=== PATIENT | female | born 1975 | race Caucasian/White ===

== ENCOUNTER → 2016-05-24 | Outpatient (CLI) | payer OTHER | LOC: GMAL 17:03 | PROVIDERS: ATTEND Family Medicine | DX: R25.8 Other abnormal involuntary movements (principal) ==

== ENCOUNTER → 2016-09-10 | Outpatient (CLI) | payer OTHER ==
--- NOTE | 2016-09-11 11:55 | MAM ---
History: Well woman exam. Date of exam: 09/10/2016 Services provided: Bilateral full field digital screening mammography. CAD, the images were reviewed with R2 computer aided detection. FINDINGS: Glandular tissue is scattered nodular contour with slightly increased mammographic density. No prior exam is currently available for comparison. No dominant mass, architectural distortion or clustered microcalcification. IMPRESSION: Benign exam Recommendation: Routine annual mammography BIRAD CATEGORY: 2 BENIGN Electronically signed by: Romy Reynoso MD 09/11/2016 11:54 AM CDT
== END | disposition home or self-care (01) ==
LOC: MAMMO 16:53
PROVIDERS: ATTEND Family Medicine
DX: Z12.31 Encounter for screening mammogram for malignant neoplasm of breast (principal)

== ENCOUNTER → 2017-03-21 | Outpatient (CLI) | payer OTHER | END | disposition home or self-care (01) | LOC: LAB.NP 14:55 | PROVIDERS: ATTEND Family Medicine | DX: D51.3 Other dietary vitamin B12 deficiency anemia (principal); I10 Essential (primary) hypertension; E78.4 Other hyperlipidemia; E55.9 Vitamin D deficiency, unspecified ==

== ENCOUNTER → 2017-03-27 | Outpatient (CLI) | payer OTHER ==
--- NOTE | 2017-03-28 11:37 | US ---
EXAM DESCRIPTION: Pelvis Transvaginal CLINICAL HISTORY: EXCESSIVE AND FREQUENT MENTSTRUATION WITH IRREGULAR CYCLE COMPARISON: None. TECHNIQUE: Transvaginal sonographic images of the pelvis were acquired and submitted for review. FINDINGS: Uterus: * Orientation- anteverted * Size- 8 x 4.1 x 4.6cm * Mass- a 3.5 x 2.9 x 2 cm and 1.6 x 1.6 x 1.5 cm intramural leiomyomas are observed. * Cervix- a 6.9 cm nabothian cyst is observed * Endometrium- normal and measures 4.6 cm in thickness Ovaries: * Size- right measures 2.6 x 1.4 x 3 cm; left measures 3.8 x 2.9 x 2.1 cm * Mass- None. * Vascular flow- Present. * Cyst- None Adnexa: Mass- None. Free fluid - None. IMPRESSION: Two leiomyomas are observed. Electronically signed by: Jacky Painting MD 03/28/2017 11:35 AM [employer]
== END | disposition home or self-care (01) ==
LOC: US 13:30
PROVIDERS: ATTEND Family Medicine
DX: D25.1 Intramural leiomyoma of uterus (principal); N92.1 Excessive and frequent menstruation with irregular cycle

== ENCOUNTER → 2017-10-01 | Outpatient (CLI) | payer OTHER ==
--- NOTE | 2017-10-02 15:48 | MAM ---
EXAM DESCRIPTION: 3D Screening BILATERAL : Digital Mammography. CLINICAL HISTORY: 42 years Female ANNUAL SCREENING . No complaints. Remote family history of breast cancer. Childbirth. Postmenopausal. No HRT. COMPARISON: 2-D digital screening bilateral study 09/10/2016 Report from prior examination also reviewed. TECHNIQUE: Bilateral CC and MLO projection full-field images, 3-D tomosynthesis digital mammographic technique. CAD not utilized. FINDINGS: The breast parenchymal density pattern is: Heterogeneously dense breast tissue, which may obscure small masses. No skin thickening or nipple retraction bilateral axillary lymph nodes. Bilateral solitary microcalcifications. No focal, stellate mass or density, focal asymmetry , and no suspicious microcalcifications bilaterally. Stable mammograms compared to prior study, taking into account differences in mammographic technique IMPRESSION: BI-RADS CATEGORY: 2 - BENIGN FINDINGS. FOLLOW UP: Routine digital bilateral screening, one year interval from September 2017. Written communication explaining the IMPRESSION and follow-up, will be mailed to the patient and referring health care provider. According to the [employer], yearly mammograms are recommended starting at age 40 and continuing as long as a woman is in good health. Any breast change noted on a breast self-exam should be reported promptly to the patient's healthcare provider. Breast MRI is recommended for women with an approximately 20-25% or greater lifetime risk of breast cancer, including women with a strong family history of breast or ovarian cancer and women who have been treated for Hodgkin's disease. A negative mammographic report should not delay tissue diagnosis in patients with significant clinical history or physical findings. Extremely dense breast tissue limits the sensitivity of digital mammography. Electronically signed by: Sukh Pinto MD 10/02/2017 3:47 PM CDT
== END ==
LOC: MAMMO 16:30
PROVIDERS: ATTEND Family Medicine
DX: Z12.31 Encounter for screening mammogram for malignant neoplasm of breast (principal)

== ENCOUNTER → 2018-02-13 | Outpatient (CLI) | payer OTHER | LOC: GMAL 17:26 | PROVIDERS: ATTEND Family Medicine | DX: R10.84 Generalized abdominal pain (principal) ==

== ENCOUNTER → 2018-02-17 | Outpatient (CLI) | payer OTHER ==
--- NOTE | 2018-02-17 11:52 | CT ---
EXAM DESCRIPTION: Abdomen/Pelvis w/wo Contrast: Computed Tomography. CLINICAL HISTORY: ABDOMINAL PAIN COMPARISON: CT scan abdomen and pelvis with contrast 07/06/2011. Ultrasound of the pelvis 03/27/2017. TECHNIQUE: Spiral-axial scans at 5 x 5 mm intervals through the abdomen and pelvis before and after standard dose nonionic IV contrast. No oral contrast. Coronal and sagittal 2.0 mm reconstructions. 5 x 5 mm Delayed helical-axial scans, liver through the pubic symphysis. No adverse reactions. Total Exam DLP 3436.04 mGy - cm. This exam was performed according to our departmental CT dose-optimization program which includes automated exposure control, adjustment of the mA and/or kV according to patient size and/or use of iterative reconstruction technique; to reduce radiation dose to as low as reasonably achievable (ALARA). FINDINGS: Lung bases and pleura: Negative. Liver, Stomach, Spleen, Adrenal Glands: Oval-shaped region of low-density in the anterior aspect of the inferior tip of the right lobe of the liver, measuring approximately 1 cm with Hounsfield density +50 HU. No other focal abnormalities in the liver. The stomach is well-distended with gas and fluid material. Other solid organs are negative. Pancreas, Gallbladder, Ducts: Surgical clips in the gallbladder fossa with no fluid. Minimal enlargement of the common bile duct. Pancreas is unremarkable. Kidneys and Ureters: 4.3 mm radiodense stone in the inferior collecting system of the right kidney. 2 mm radiodense stone in the inferior collecting system of the left kidney. No hydronephrosis bilaterally. No perirenal fluid or fatty stranding. Bilateral ureters unremarkable. Mesentery: No studies stranding or fascial thickening. No free air. No ascites. Aorta: Unremarkable. Small Bowel: Minimal fluid in the distal ileum but not distended. Terminal Ileum/Cecum: Contains fluid and fecal material. Small short appendix unremarkable. Normal density of the surrounding fat. Colon: No distention. Scattered diverticula more numerous in the sigmoid colon. No complications. Pelvic Organs: Uterus has been removed since the prior ultrasound in 2017. Vaginal cuff is negative. No fluid in the cul-de-sac. Follicles in the right ovary with a 2 cm rim-enhancing cyst versus mass in the lateral left ovary, on axial series 4, image 71. Not present on the prior ultrasound. Right ovary is unremarkable. Spine and Bony Pelvis: Mild levoscoliosis. Gas density in the right SI joint. Minimal spondylosis lower thoracic spine. Abdominal Wall/Back Soft Tissues: Minimal diastases of the umbilicus and the bilateral inguinal canals with fat, but no bowel. IMPRESSION: 1. 1 Centimeter lesion in the anterior aspect of the inferior right lobe of the liver is stable since CT scan June 2011. 2. Rim-enhancing 2 cm cyst in the left ovary has enlarged compared to the prior ultrasound. No fluid in the cul-de-sac. Hysterectomy since the prior ultrasound. Consider follow-up transvaginal pelvic/endovaginal pelvic ultrasound. 3. Bilateral radiodense, nonobstructing stones in the lower collecting system of the kidneys. May be obscured by contrast on the prior CT scan. Urinary tract otherwise unremarkable. Electronically signed by: Sukh Pinto MD 02/17/2018 11:50 AM CDT
== END ==
LOC: CT 08:26
PROVIDERS: ATTEND Family Medicine
DX: N83.202 Unspecified ovarian cyst, left side (principal); N20.0 Calculus of kidney; K76.9 Liver disease, unspecified; R10.84 Generalized abdominal pain

== ENCOUNTER → 2018-12-29 | Outpatient (CLI) | payer OTHER ==
--- NOTE | 2018-12-30 17:31 | MAM ---
EXAM DESCRIPTION: 3D Screening BILATERAL : Digital Mammography. CLINICAL HISTORY: 43 years Female SCREENING . No complaints or personal history of breast cancer. Remote family history of breast cancer. Childbirth. Postmenopausal one year. No HRT. Lifetime risk of developing breast cancer (Tyrer-Cuzick model)(%): 9.7. COMPARISON: Bilateral screening digital breast tomosynthesis 10/01/2017. TECHNIQUE: Bilateral CC and MLO projection full-field images, digital tomosynthesis mammographic technique. Bilateral digital 2-D full-field MLO images. CAD not available for tomosynthesis or 2-D images. FINDINGS: The breast parenchymal density pattern is: Heterogeneously dense breast tissue, which may obscure small masses. No skin thickening or nipple retraction. No new focal, stellate mass or density, focal asymmetry , and no suspicious microcalcifications bilaterally. Stable mammograms compared to prior study. IMPRESSION: BI-RADS CATEGORY: 1 - NEGATIVE FOLLOW UP: Routine digital bilateral screening, one year interval from December 2018 Written communication explaining the findings and follow-up, will be mailed to the patient and referring health care provider. According to the [employer], yearly mammograms are recommended starting at age 40 and continuing as long as a woman is in good health. Any breast change noted on a breast self-exam should be reported promptly to the patient's healthcare provider. Breast MRI is recommended for women with an approximately 20-25% or greater lifetime risk of breast cancer, including women with a strong family history of breast or ovarian cancer and women who have been treated for Hodgkin's disease. A negative mammographic report should not delay tissue diagnosis in patients with significant clinical history or physical findings. Extremely dense breast tissue limits the sensitivity of digital mammography. Electronically signed by: Sukh Pinto MD 12/30/2018 5:29 PM CDT
== END ==
LOC: MAMMO 16:09
PROVIDERS: ATTEND Family Medicine
DX: Z12.31 Encounter for screening mammogram for malignant neoplasm of breast (principal)

== ENCOUNTER → 2019-04-03 | Outpatient (CLI) | payer OTHER ==
--- NOTE | 2019-04-04 11:34 | MRI ---
EXAM DESCRIPTION: Lumbar Spine w/o Contrast : Magnetic Resonance Imaging. CLINICAL HISTORY: Radiculopathy, lumbar region COMPARISON: MRI scan lumbar spine without contrast 14 February 2016. TECHNIQUE: Multiplanar, multiple standard sequences, non contrast MRI, lumbar spine. FINDINGS: L5-S1: The disc is well visualized on axial T2 series 501, image 3. Disc space preserved with normal signal in the disc. Hypertrophy of the posterior ligaments. Mild canal narrowing. Mild bilateral foraminal narrowing. Stable since the prior study. L4-L5: Minimal disc desiccation and minimal disc space loss. Mild hypertrophic facet arthrosis with thickening of the ligaments. AP canal diameter 10 mm. Mild to moderate left foraminal narrowing due to disc bulging. Mild right foraminal narrowing. No change from the prior study. L3-L4: Minimal disc desiccation and tiny posterior disc bulge. Bilateral ligament thickening with hypertrophic arthrosis left facet. AP canal diameter 11 mm. Stable since the prior study. L2-L3: Signal in the disc. Disc space maintained. Posterior elements unremarkable. Canal and foramina are patent. No change from the prior study. L1-L2: Normal signal disc and disc space maintained. Posterior elements unremarkable. Canal and foramina are patent. Stable since the prior study. T12-L1: Normal signal disc and disc space maintained. Conus terminates at this level. Canal and foramina are patent. Posterior elements unremarkable. No change from the prior study.. Mild kyphosis thoracolumbar segments. Paravertebral soft tissues limited. Distal cord normal signal and caliber. Otherwise normal marrow signal in the remaining vertebral bodies and the posterior elements. Vertebral bodies are not compressed at any level. IMPRESSION: 1. Disc desiccation at several levels. Borderline mild central canal stenosis at L4-L5 secondary to disc desiccation and hypertrophic changes in the posterior elements. Mild right foraminal narrowing. No change from the prior study. No canal stenosis or foraminal stenosis at other levels. Multiple levels of posterior flavum ligament thickening. Moderate canal narrowing L3-L4 stable since the prior study. Electronically signed by: Sukh Pinto MD 04/04/2019 11:32 AM [facility]
--- NOTE | 2019-04-04 11:38 | US ---
EXAM DESCRIPTION: Abdomen,Limited: ULTRASOUND. CLINICAL HISTORY: Abnormal results of liver function studies COMPARISON: MRI lumbar spine on this visit. CT scan abdomen and pelvis February 2018. TECHNIQUE: Transabdominal scanning: trevino-scale mode. Doppler mode. FINDINGS: Gallbladder: Not visualized. No fluid in the gallbladder fossa. Common bile duct: caliber 5.2 mm within normal limits. Liver: Increased heterogeneous echogenicity; contour liver capsule smooth where seen. No fluid around the liver. Intrahepatic biliary ducts normal caliber. Doppler hepatopedal flow and normal caliber portal vein.. Long axis right lobe 14.7 cm. Pancreas: normal size and echogenicity. Duct not seen. Proximal abdominal aorta: 1.5 cm normal caliber.. IVC: visualized and normal caliber. Right kidney: long axis measures 9.3 cm. Normal Echogenicity. Minimal cortical thinning no echogenic stones and no hydronephrosis. IMPRESSION: 1. Steatosis of the liver but not enlarged. Normal caliber of the ducts and vascularity is physiologic. Smooth capsule with no ascites. Gallbladder absent. No fluid in the gallbladder fossa and no tenderness. Pancreas is unremarkable. 2. Normal caliber of the proximal abdominal aorta and IVC. Minimal thinning of the cortex of the right kidney but otherwise unremarkable. Electronically signed by: Sukh Pinto MD 04/04/2019 11:37 AM STILL TENDER
== END ==
LOC: MRI 12:38
PROVIDERS: ATTEND Family Medicine
DX: R94.5 Abnormal results of liver function studies (principal); K76.0 Fatty (change of) liver, not elsewhere classified; M51.16 Intervertebral disc disorders with radiculopathy, lumbar region

== ENCOUNTER → 2020-05-03 | Outpatient (CLI) | payer OTHER | LOC: LAB.NP 17:25 | PROVIDERS: ATTEND Nurse Practitioner Acute Care | DX: R19.7 Diarrhea, unspecified (principal) ==

== ENCOUNTER → 2020-05-05 | Outpatient (CLI) | payer OTHER ==
--- NOTE | 2020-05-06 12:25 | US ---
EXAM DESCRIPTION: Pelvic,Non-OB: Ultrasound. CLINICAL HISTORY: 45 years Female ABD PAIN. Prior hysterectomy. COMPARISON: Ultrasound Abdomen March 2019. Ultrasound pelvis March 2017. TECHNIQUE: Transcutaneous scanning through the urine filled bladder. Endovaginal scanning. Nobles-scale and Doppler modes. FINDINGS: Uterus surgically absent. Cervix not visualized. Vaginal cuff unremarkable. Cul-de-sac: No fluid. Right ovary 1.3 x 0.9 x 0.7 cm. 0.43 mL normal color Doppler vascularity. No follicles or cysts. No adnexal mass or free fluid. Left ovary 1.1 x 1.0 x 1.3 cm. 0.8 mL. Normal color Doppler vascularity. No follicles or cysts. No adnexal mass or free fluid. IMPRESSION: Uterus removed. Cervix not seen. Vaginal cuff unremarkable. No fluid in the cul-de-sac. Bilateral ovaries with volume less than 1 mL each. Normal color vascularity. No follicles or cysts; no solid masses in the adnexa. Electronically signed by: Sukh Pinto MD 05/06/2020 12:23 PM [facility]
--- NOTE | 2020-05-08 17:02 | MAM ---
EXAM DESCRIPTION: 3D Screening BILATERAL : Digital Mammography. CLINICAL HISTORY: 45 years Female SCREENING . No complaints. Remote family history of breast cancer. Menarche age 17. Childbirth age 21. Menopause age 42. No HRT. Lifetime risk of developing breast cancer (Tyrer-Cuzick model)(%): 9.5%. COMPARISON: Bilateral screening digital breast tomosynthesis December 2018. TECHNIQUE: Bilateral CC and MLO projection full-field images, digital tomosynthesis mammographic technique. Bilateral digital 2-D full-field MLO images. CAD available for 2-D images. FINDINGS: The breast parenchymal density pattern is: Scattered areas of fibroglandular density. Axillary nodes. Solitary microcalcifications. No skin thickening or nipple retraction No new focal, stellate mass or density, focal asymmetry , and no suspicious microcalcifications bilaterally. Stable mammograms compared to prior study. IMPRESSION: Benign exam. BIRAD CATEGORY: 2 BENIGN FINDINGS. RECOMMENDATIONS: FOLLOW UP: Routine digital bilateral mammographic screening, one year interval from April 2020. Written communication explaining the IMPRESSION and follow-up, will be mailed to the patient and referring health care provider. According to the [employer], yearly mammograms are recommended starting at age 40 and continuing as long as a woman is in good health. Any breast change noted on a breast self-exam should be reported promptly to the patient's healthcare provider. Breast MRI is recommended for women with an approximately 20-25% or greater lifetime risk of breast cancer, including women with a strong family history of breast or ovarian cancer and women who have been treated for Hodgkin's disease. A negative mammographic report should not delay tissue diagnosis in patients with significant clinical history or physical findings. Extremely dense breast tissue limits the sensitivity of digital mammography. Electronically signed by: Sukh Pinto MD 05/08/2020 5:00 PM [facility]
== END ==
LOC: US 07:55
PROVIDERS: ATTEND Family Medicine
DX: Z12.31 Encounter for screening mammogram for malignant neoplasm of breast (principal); R10.84 Generalized abdominal pain; Z90.710 Acquired absence of both cervix and uterus

== ENCOUNTER → 2020-06-08 | Outpatient (CLI) | payer OTHER | LOC: GMAL 16:53 | PROVIDERS: ATTEND Family Medicine | DX: D51.3 Other dietary vitamin B12 deficiency anemia (principal); I10 Essential (primary) hypertension; E55.9 Vitamin D deficiency, unspecified; E11.9 Type 2 diabetes mellitus without complications; E78.2 Mixed hyperlipidemia; R53.82 Chronic fatigue, unspecified ==

== ENCOUNTER → 2020-07-13 | Outpatient (CLI) | payer OTHER ==
--- NOTE | 2020-07-14 11:32 | MRI ---
EXAM DESCRIPTION: Cervical Spine: MRI. CLINICAL HISTORY: 45 years Female CERVICAL PAIN COMPARISON: Cervical TECHNIQUE: Multiplanar, high-field MRI, multiple sequences, non-contrast Cervical spine. FINDINGS: C3-C4: Normal signal in the disc at this space maintained. Right uncinate spur narrowing the right neural foramen mildly. Canal and neural foramen are patent. Facet joints are unremarkable. C4-C5: Minimal disc desiccation and anterior bulging. No posterior bulge. Minimal hypertrophy of the right facet joint with arthrosis. Canal and bilateral neuroforamina are patent. C5-C6: Disc desiccation and minimal disc space loss. Posterior broad-based bulge but not impressing on the cord. Left facet joint hypertrophic arthrosis. Mild bilateral neural foraminal narrowing. Canal is patent. C6-C7: Disc space maintained. Minimal disc desiccation. Posterior midline tiny protrusion abutting the cord. No definite nerve root impingement. Mild canal narrowing. Bilateral neural foramina are patent. Normal signal in the C2-C3 disc, C7-T1 disc, and T1- T2 disc with no bulging. Disc spaces preserved. Canal and neural foramina are patent. Facet joints are unremarkable. Spinal alignment minimal levoscoliosis. No cord compression or cord edema. Atlantoaxial joint is unremarkable. Base of the cerebellar tonsils is at the level the foramen magnum. Paravertebral soft tissues are negative. Vertebral bodies are not compressed at any level. Otherwise normal marrow signal in the remaining vertebral bodies and the posterior elements. IMPRESSION: 1. Disc desiccation at multiple levels. Minimal disc space loss. Minimal facet joint arthrosis and hypertrophy at several levels. No canal or neural foraminal stenosis. 2. Posterior midline C6-C7 disc protrusion with canal narrowing. No definite nerve impingement. 3. Please refer to FINDINGS for discussion of results at other disc space levels. Electronically signed by: Sukh Pinto MD 07/14/2020 11:31 AM [facility]
== END ==
LOC: MRI 07:45
PROVIDERS: ATTEND Family Medicine
DX: M50.321 Other cervical disc degeneration at C4-C5 level (principal); M50.322 Other cervical disc degeneration at C5-C6 level; M50.323 Other cervical disc degeneration at C6-C7 level; M50.223 Other cervical disc displacement at C6-C7 level; M47.892 Other spondylosis, cervical region